=== PATIENT | female | born 1985 | race African-American/Black ===

== ENCOUNTER 2018-07-13 09:46 | Emergency (ER) | payer MEDICAID ==
[~2018-07-13] VITALS: Ht 172.7 cm; Wt 104.0 kg
[~2018-07-13 09:46] MED LIST: COR3 PO; FURO-151 PO; POTA10TA15 PO; RIVA20TA PO
[2018-07-13 10:42] LABS: BASOPHILS % 1.3 % (0.0-2.0); EOSINOPHILS % 1.4 % (0.0-5.0); HEMATOCRIT. 40.1 % (36.0-48.0); HEMOGLOBIN. 13.4 g/dL (12.0-16.0); MEAN CORPUSCULAR HEMOGLOBIN 31.4 pg (28.0-32.0); MEAN CORPUSCULAR VOLUME 94.1 fL (81.0-99.0); MEAN PLATELET VOLUME 9.5 fl (7.4-10.4); MONOCYTES % 5.3 % (2.0-8.0); PLATELET 276 x1000/uL (130-400); RED BLOOD CELL COUNT 4.26 mill/uL (4.2-5.4); RED CELL DISTRIBUTION WIDTH 13.8 % (11.6-14.6)
[2018-07-13 10:49] LABS: CHLORIDE 110 mEq/L (98-107)
[2018-07-13 10:51] LABS: INR 1.1; PROTHROMBIN TIME 11.5 sec (9.1-11.1)
[2018-07-13] MEDS ORDERED: FUROSEMIDE 40MG/4ML VIAL IVP ONE (12:45)
[2018-07-13 13:00] VITALS: BP 113/76
== END 2018-07-13 13:43 | disposition left against medical advice (07) ==
LOC: ER 09:59
DX: I11.0 Hypertensive heart disease with heart failure (principal); I50.9 Heart failure, unspecified; I25.2 Old myocardial infarction; E78.00 Pure hypercholesterolemia, unspecified; F12.10 Cannabis abuse, uncomplicated; I51.7 Cardiomegaly; Z86.718 Personal history of other venous thrombosis and embolism; Z79.01 Long term (current) use of anticoagulants; Z95.5 Presence of coronary angioplasty implant and graft; Z98.890 Other specified postprocedural states
CPT/HCPCS: 36415; 71045; 80053; 81025; 83880; 84484; 85025; 85610; 93005; 99285; Z7610

== ENCOUNTER 2020-03-24 16:21 | Emergency (ER) | payer MEDICAID, MEDICARE ==
[~2020-03-24] VITALS: Ht 172.7 cm; Wt 102.0 kg
[~2020-03-24 16:21] MED LIST changes: +ASPI-1497 PO; -POTA10TA15 PO
[2020-03-24] MEDS ORDERED: HYDROCODONE/ACETAMINOPHEN 5/325MG TABLET PO STA (17:06)
[2020-03-24 17:31] LABS: BASOPHILS % 0.1 % (0.0-2.0); EOSINOPHILS % 1.4 % (0.0-5.0); HEMATOCRIT. 38.3 % (36.0-48.0); HEMOGLOBIN. 12.8 g/dL (12.0-16.0); LYMPHOCYTES % 26.9 % (20.0-50.0); MEAN CORPUSCULAR HEMOGLOBIN 33.3 pg (28.0-32.0); MEAN CORPUSCULAR VOLUME 99.8 fL (81.0-99.0); MEAN PLATELET VOLUME 9.2 fl (7.4-10.4); MONOCYTES % 4.5 % (2.0-8.0); NEUTROPHILS % 67.1 % (40.0-76.0); PLATELET 238 x1000/uL (130-400); RED BLOOD CELL COUNT 3.84 mill/uL (4.2-5.4); RED CELL DISTRIBUTION WIDTH 13.4 % (11.6-14.6)
[2020-03-24 17:37] LABS: INR 1.1; PROTHROMBIN TIME 11.7 sec (9.6-11.0)
[2020-03-24 17:38] LABS: CHLORIDE 110 mEq/L (98-107)
[2020-03-24 19:00] VITALS: BP 127/80
== END 2020-03-24 19:02 | disposition home or self-care (01) ==
LOC: ER 16:21
DX: I82.611 Acute embolism and thrombosis of superficial veins of right upper extremity (principal); I11.0 Hypertensive heart disease with heart failure; I50.9 Heart failure, unspecified; E78.00 Pure hypercholesterolemia, unspecified; I25.2 Old myocardial infarction; Z95.0 Presence of cardiac pacemaker; Z86.718 Personal history of other venous thrombosis and embolism; Z79.01 Long term (current) use of anticoagulants
CPT/HCPCS: 36415; 71045; 80053; 83880; 84484; 85025; 93005; 93971; 99285